=== PATIENT | female | born 1995 | race Hispanic/Latino ===

== ENCOUNTER 2019-07-01 16:08 | Emergency (ER) | payer SELFPAY ==
--- NOTE | 2019-07-01 16:52 | Event Note ---
ED Screening Note Date of service: 07/01/19 Time: 16:50 ED Screening Note: This is a 24 y.o. F. that presents to the ER with vaginal pruritus, vaginal discharge, and pelvic pain for 2-3 days. LMP 06/08/2019 This initial assessment/diagnostic orders/clinical plan/treatment(s) is/are subject to change based on patients health status, clinical progression and re- assessment by fellow clinical providers in the ED. Further treatment and workup at subsequent clinical providers discretion. Patient/guardian urged not to elope from the ED as their condition may be serious if not clinically assessed and managed. Initial orders include: Labs
[2019-07-01 20:47] LABS: HCG Qualitative,Urine Negative (Negative)
[2019-07-01 20:51] LABS: Bacteria,Urine 1+ /HPF (Negative); Bilirubin,Urine NEG (Negative); Blood,Urine NEG (Negative); Color,Urine Yellow (Yellow); Mucus,Urine FEW /HPF; Protein,Urine <15 mg/dL mg/dL (Negative); Urobilinogen,Urine < 2.0 mg/dL (<2.0)
[2019-07-01] MEDS ORDERED: LIDOCAINE-MPF (1%) 10 MG/1 ML VIAL 5 ML INFILTRATI ONE (20:57)
[2019-07-01] MEDS ORDERED: AZITHROMYCIN 1 GM ORAL PWDR PACKET PO ONE (20:57)
--- NOTE | 2019-07-01 21:02 | Emergency Department Report ---
ED Female HPI - General Chief complaint: Urogenital-Female Stated complaint: VAGINAL IRRITATION Time Seen by Provider: 07/01/19 16:49 Source: patient Mode of arrival: Ambulatory Limitations: No Limitations - History of Present Illness Initial comments: Patient is a 24-year-old female who presents to emergency room with complaints of vaginal irritation that began 2 days ago. she has associated vaginal itching, dysuria, vaginal burning, suprapubic abdominal cramping. She denies any nausea, vomiting, chills, fever, lesions or blisters on the vagina. She states that she has had chlamydia in the past and she received treatment for that. She states that she has had a new partner and did not use protection. she denies any past medical history or allergies to medications. She states her last menstrual cycle was June 08. - Related Data Previous Rx's Medication Instructions Recorded Last Taken Type Fluconazole [Diflucan TAB] 150 mg PO ONCE #1 tablet 07/01/19 Unknown Rx Allergies Allergy/AdvReac Type Severity Reaction Status Date / Time No Known Allergies Allergy Verified 07/01/19 16:51 ED Review of Systems ROS: Stated complaint: VAGINAL IRRITATION Other details as noted in HPI Comment: All other systems reviewed and negative ED Past Medical Hx - Past Medical History Previous Medical History?: No - Surgical History Additional Surgical History: FELOPIAN TUBE REMOVAL - Social History Smoking Status: Never Smoker Substance Use Type: Alcohol - Medications Home Medications: Home Medications Medication Instructions Recorded Confirmed Last Taken Type Fluconazole [Diflucan TAB] 150 mg PO ONCE #1 tablet 07/01/19 Unknown Rx ED Physical Exam - General Limitations: No Limitations General appearance: alert, in no apparent distress - Head Head exam: Present: atraumatic, normocephalic - Eye Eye exam: Present: normal appearance - ENT ENT exam: Present: mucous membranes moist - Respiratory Respiratory exam: Present: normal lung sounds bilaterally. Absent: respiratory distress, wheezes, rales, rhonchi, stridor, chest wall tenderness, accessory muscle use, decreased breath sounds, prolonged expiratory - Cardiovascular Cardiovascular Exam: Present: regular rate, normal rhythm, normal heart sounds. Absent: systolic murmur, diastolic murmur, rubs, gallop - GI/Abdominal GI/Abdominal exam: Present: soft, normal bowel sounds. Absent: distended, tenderness, guarding, rebound, rigid - External exam: Present: normal external exam. Absent: erythema, swelling, lesions, lacerations, ecchymosis, bleeding Speculum exam: Present: vaginal discharge (thick/white discharge), cervical discharge (thick/white discharge), other (attache: polo, tech). Absent: erythema, vaginal bleeding, foreign body, tissue, laceration Bi-manual exam: Present: normal bi-manual exam. Absent: cervical motion tendernes, adnexal tenderness, adnexal mass - Back Exam Back exam: Absent: CVA tenderness (R), CVA tenderness (L) - Neurological Exam Neurological exam: Present: alert, oriented X3 - Psychiatric Psychiatric exam: Present: normal affect, normal mood - Skin Skin exam: Present: warm, dry, intact ED Course Vital Signs 07/01/19 07/01/19 16:49 21:40 Temperature 98.6 F 98.5 F Pulse Rate 71 57 L Respiratory 18 18 Rate Blood Pressure 109/65 109/64 [Right] O2 Sat by Pulse 99 99 Oximetry ED Medical Decision Making - Lab Data Lab Results 07/01/19 Range/Units 20:13 Urine Color Yellow (Yellow) Urine Turbidity Slightly-cloudy (Clear) Urine pH 5.0 (5.0-7.0) Ur Specific [place] 1.015 (1.003-1.030) Urine Protein <15 mg/dl (Negative) mg/dL Urine Glucose (UA) Neg (Negative) mg/dL Urine Ketones Neg (Negative) mg/dL Urine Blood Neg (Negative) Urine Nitrite Neg (Negative) Ur Reducing Substances Not Reportable Urine Bilirubin Neg (Negative) Urine Ictotest Not Reportable Urine Urobilinogen < 2.0 (<2.0) mg/dL Ur Leukocyte Esterase Sm (Negative) Urine WBC (Auto) 1.0 (0.0-6.0) /HPF Urine RBC (Auto) 2.0 (0.0-6.0) /HPF U Epithel Cells (Auto) 2.0 (0-13.0) /HPF Urine Bacteria (Auto) 1+ (Negative) /HPF Urine Mucus Few /HPF Urine HCG, Qual Negative (Negative) - Medical Decision Making Patient is a 24-year-old female who presents to emergency room with complaints of vaginal irritation that began 2 days ago. she has associated vaginal itching, dysuria, vaginal burning, suprapubic abdominal cramping. She denies any nausea, vomiting, chills, fever, lesions or blisters on the vagina. She states that she has had chlamydia in the past and she received treatment for that. She states that she has had a new partner and did not use protection. she denies any past medical history or allergies to medications. She states her last menstrual cycle was June 08. VSS. on exam: thick/white discharge, no CMT, no adnexal tenderness/no adexnal masses, attache: jacqui cuellar. UA without evidence of UTI. urine preg is negative. wet prep shows evidence of yeast infection. G/C swab sent. pt given prescription for fluconazole. pt prophylactically treated for G/C with ceftriaxone and azithromycin. Please take medication as prescribed. Abstain from sexual intercourse for 10 days. please have partner tested and treated as well. please go to medical records in 1 week for results of your tests. please be seen by [facility]OC [facility]ST or health department for further STD testing. please follow-up in [facility] in the next 5 days. return the emergency room for any new or worsening symptoms. - Differential Diagnosis STD, UTI, yeast, BV, vaginitis Critical care attestation.: If time is entered above; I have spent that time in minutes in the direct care of this critically ill patient, excluding procedure time. ED Disposition Clinical Impression: Vaginal discharge, Vaginal irritation, Vaginal candidiasis Disposition: TO HOME OR SELFCARE Is pt being admited?: No Does the pt Need Aspirin: No Condition: Stable Instructions: Sexually Transmitted Diseases (ED), Safe Sex (ED), Vulvovaginal Candidiasis (ED) Additional Instructions: Please take medication as prescribed. Abstain from sexual intercourse for 10 days. please have partner tested and treated as well. please go to medical records in 1 week for results of your tests. please be seen by NOC ANALYST or health department for further STD testing. please follow-up in [facility] in the next 5 days. return the emergency room for any new or worsening symptoms. Prescriptions: Fluconazole [Diflucan TAB] 150 mg PO ONCE #1 tablet Referrals: ZEE MAK MD [Staff Physician] - 3-5 Days [facility] [Outside] - 3-5 Days Time of Disposition: 21:01 Print Language: [id number]
[2019-07-01 21:42] VITALS: BP 109/64
== END 2019-07-01 21:40 | disposition home or self-care (01) ==
LOC: ED 16:08
DX: B37.3 Candidiasis of vulva and vagina (principal)
CPT/HCPCS: 81001; 81025; 87210; 87591; 96372; 99284; J0696